=== PATIENT | male | born 1945 | race Caucasian/White ===

== ENCOUNTER 2023-01-20 10:54 | Emergency (ER) | payer MEDICARE, SELFPAY ==
[2023-01-20] VITALS (26 sets, daily range): BP systolic 84–123; BP diastolic 58–75; PULSE 62–119; RESP 6–22; TEMP 36.6; O2SAT 90–98; BMI 29.8
--- NOTE | 2023-01-20 11:07 | ECG_ITS ---
[facility] Test Date: 2023-01-20 Pat Name: Reg Tee Department: Room: - Gender: Male Molding Supervisor: : [id number] Requested By: RENEE RUANO Order Number: [id number] Reading MD: SKYLER GRANDA Measurements Intervals [place] Rate: 75 P: 34 NH: 204 QRS: 39 QRSD: 72 T: 71 QT: 382 QTc: 411 Interpretive Statements 1100 Sinus rhythm 1570 with occasional ventricular premature complexes 4068 Nonspecific Twave abnormality 8102 Low QRS voltage in chest leads 9140 abnormal rhythm ECG No previous ECG available for comparison Electronically Signed On 01-21-2023 13:09:47 EDT by SKYLER GRANDA
[2023-01-20 11:30] LABS: Basophils Percent Auto 0.2 % (0.2-2.0); Eosinophils Absolute Auto 0.1 10^3/uL (0.0-0.7); Eosinophils Percent Auto 1.6 % (0.9-7.0); Hematocrit 36.3 % (42.0-54.0); Hemoglobin 12.3 g/dL (14.0-18.0); Immature Granulocytes Abs Auto 0.01 10^3/uL (0.00-0.03); Immature Granulocytes Pct Auto 0.2 % (0.0-0.5); Lymphocytes Absolute Auto 1.2 10^3/uL (1.2-3.8); Lymphocytes Percent Auto 23.5 % (20.5-60.0); Mean Corpuscular HGB Conc 33.9 g/dL (29.9-35.2); Mean Corpuscular Hemoglobin 32.4 pg (25.9-34.0); Mean Corpuscular Volume 95.5 fL (80.0-94.0); Mean Platelet Volume 10.1 fL (9.5-13.5); Monocytes Absolute Auto 0.5 10^3/uL (0.3-0.8); Monocytes Percent Auto 9.2 % (1.7-12.0); Neutrophils Absolute Auto 3.2 10^3/uL (1.4-6.5); Neutrophils Percent Auto 65.3 % (43.0-75.0); Platelet Count 194 10^3/uL (150-450); Red Cell Distribution Width 13.1 % (11.0-15.0); White Blood Count 4.9 10^3/uL (4.0-11.0)
[2023-01-20] MEDS: 0.9 % SODIUM CHLORIDE 1,000 ML 1000 ML IV (11:30)
--- NOTE | 2023-01-20 11:44 | ED_ITS ---
HPI - Dizziness General Chief Complaint: Neuro Symptoms/Deficit Stated Complaint: AMS Time Seen by Provider: 01/20/23 11:00 Source: patient Mode of arrival: ambulance Limitations: other Limitations comment: NINILCHIK History of Present Illness HPI Narrative: Patient was at [employer] when he became dizzy and was apparently confused. EMS called to the scene and transported the patient to our ED. Glucose 125 per EMS. On arrival to our ED the patient is awake, alert and oriented x4. Said that he got dizzy in [employer]. Said he did not eat or drink anything this morning. Denies any symptoms at this time. Only takes medicine for depression. No known history of DM, HTN, CAD, kidney or pulmonary disease. Related Data Allergies Allergy/AdvReac Type Severity Reaction Status Date / Time No Known Drug Allergies Allergy Verified 01/20/23 11:19 Exam Narrative Exam Narrative: Nurses notes and vital signs reviewed and patient is not hypoxic. afebrile General: Well-appearing and in no apparent distress. Skin: Warm, dry, no pallor noted. No rash. Head: Normocephalic, atraumatic. Neck: Supple, non-tender. Eye: Pupils are equal, round and EOMI. No scleral icterus. Ears, Nose, Mouth, and Throat: TM are clear, no nasal mucosal hypertrophy. Oral mucosa is moist, no posterior oropharynx erythema, uvula is mid-line Cardiovascular: Regular Rate and Rhythm without murmur, gallop or rub. Respiratory: No accessory muscle use or respiratory distress. Lungs are clear to auscultation, no wheezing, rales or rhonchi Back: No midline thoracic or lumbar vertebral tenderness. No CVA tenderness Musculoskeletal: normal ROM, no calf or popliteal tenderness, no lower extremity edema/swelling GI: Abdomen is soft, non-distended. Normal bowel sounds. No masses appreciated. No tenderness to palpation. No rebound, guarding, or rigidity noted. Neurological: A&O x4. No cranial nerve dysfunction observed. No truncal ataxia. Moves all extremities. Sensation intact. Psychiatric: Cooperative and interactive. Normal mood and affect. 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 Blood drawn and sent for evaluation. the patient was orthostatic with a drop in blood pressure going from sitting to standing. He was ordered to receive a liter of normal saline IV fluid. he also was given some food to eat. Elevated BUN and Cr consistent with the patient's decreased fluid status. Patient's dizziness resolved after receiving NS IVF and he was able to be discharged home. Encouraged to increase his fluid intake. PCP follow up recommended. ED return if he worsens. Lab Data Attestation: I reviewed the patient's lab results. Labs: Lab Results 01/20/23 Range/Units 11:11 WBC 4.9 (4.0-11.0) 10^3/uL RBC 3.80 L (4.70-6.10) 10^6/uL Hgb 12.3 L (14.0-18.0) g/dL Hct 36.3 L (42.0-54.0) % MCV 95.5 H (80.0-94.0) fL MCH 32.4 (25.9-34.0) pg MCHC 33.9 (29.9-35.2) g/dL RDW 13.1 (11.0-15.0) % Plt Count 194 (150-450) 10^3/uL MPV 10.1 (9.5-13.5) fL Neut % (Auto) 65.3 (43.0-75.0) % Lymph % (Auto) 23.5 (20.5-60.0) % Piatt % (Auto) 9.2 (1.7-12.0) % Eos % (Auto) 1.6 (0.9-7.0) % Baso % (Auto) 0.2 (0.2-2.0) % Neut # (Auto) 3.2 (1.4-6.5) 10^3/uL Lymph # (Auto) 1.2 (1.2-3.8) 10^3/uL Piatt # (Auto) 0.5 (0.3-0.8) 10^3/uL Eos # (Auto) 0.1 (0.0-0.7) 10^3/uL Baso # (Auto) 0.0 (0.0-0.1) 10^3/uL Abs Immat Gran (auto) 0.01 (0.00-0.03) 10^3/uL Imm/Tot Granulo (auto) 0.2 (0.0-0.5) % Sodium 139 (136-145) mmol/L Potassium 4.0 (3.5-5.1) mmol/L Chloride 101 (98-107) mmol/L Carbon Dioxide 26.9 (21.0-32.0) mmol/L Anion Gap 15.1 BUN 26.0 H (7.0-18.0) mg/dL Creatinine 1.51 H (0.70-1.30) mg/dL Est GFR ( Amer) 55 L (>=60) Est GFR (Non-Af Amer) 45 L (>=60) BUN/Creatinine Ratio 17.2 Glucose 117 H (74-106) mg/dL Calcium 9.0 (8.5-10.1) mg/dL Total Bilirubin 0.3 (0.2-1.0) mg/dL AST 21 (15-37) U/L ALT 21 (16-63) U/L Alkaline Phosphatase 72 (46-116) U/L Total Protein 7.4 (6.4-8.2) g/dL Albumin 3.7 (3.4-5.0) g/dL Globulin 3.7 g/dL Albumin/Globulin Ratio 1.0 ECG Data Attestation: ?I have reviewed the pertinent ECG results. Interpretation: EKG interpretation: Emergency Department physician interpretation. Normal sinus rhythm at 75bpm. PVCs noted. Non-specific ST-T changes. Normal axis, normal intervals and no ST segment elevation or depression. Discharge Plan Discharge Chief Complaint: Neuro Symptoms/Deficit Clinical Impression: Acute kidney injury, Orthostatic hypotension, Dehydration Patient Disposition: Home, Self-Care Time of Disposition Decision: 13:31 Instructions: Dehydration (ED), Acute Kidney Injury (DC) Stand Alone Forms: Portal Instructions Referrals: RENEE RUANO [Primary Care Provider] - 1 week
[2023-01-20 11:59] LABS: Alanine Aminotransferase 21 U/L (16-63); Albumin Level 3.7 g/dL (3.4-5.0); Alkaline Phosphatase 72 U/L (46-116); Anion Gap 15.1; Aspartate Amino Transferase 21 U/L (15-37); BUN Creatinine Ratio 17.2; Bilirubin Total 0.3 mg/dL (0.2-1.0); Carbon Dioxide 26.9 mmol/L (21.0-32.0); Chloride 101 mmol/L (98-107); Estimated GFR (African America 55 (>=60); Estimated GFR (Non-African Ame 45 (>=60); Globulin 3.7 g/dL; Glucose 117 mg/dL (74-106); Sodium 139 mmol/L (136-145); Total Protein 7.4 g/dL (6.4-8.2)
== END 2023-01-20 14:04 | disposition home or self-care (01) ==
PROVIDERS: Emergency Provider Emergency Medicine; PCP Family Medicine
DX: E86.0 Dehydration (principal); I95.1 Orthostatic hypotension; N17.9 Acute kidney failure, unspecified; F32.A Depression, unspecified; Z79.899 Other long term (current) drug therapy
CPT/HCPCS: 36415; 80053; 85025; 93005; 96360; 99284